=== PATIENT | female | born 1985 | race Caucasian/White ===

== ENCOUNTER → 2017-03-03 | Day surgery (SDC) | payer OTHER ==
[2017-02-23 13:51] VITALS: BMI 25.0
[~2017-03-03] VITALS: Ht 170.2 cm; Wt 75.0 kg
[~2017-03-03] MED LIST: ACET500C35 PO; DULO60CA44 PO; FAMO20TA11 PO; HYDR25TA4 PO; LIDOCAINE HCL 2% 2 ML VIAL (20MG/ML) ONE; MELO15TA4 PO; METR0.754 TOP; MIDAZOLAM HCL 1 MG/ML 2ML VIAL ONE; ONDA8TAB6 PO; POTA20TA16 PO; PREG1CAP70 PO; PROM25TA9 PO; PROPOFOL IV EMULSION 10 MG/ML 20 ML VIAL IV ONE; SODIUM CHLORIDE 0.9% 500ML 500 ML IV ONE; SUMA100T16 PO; TIZA4CAP PO
[2017-03-03 12:48] VITALS: Ht 170.2 cm; Wt 75.0 kg
--- NOTE | 2017-03-03 13:04 | Endo History and Physical ---
History & Physical Date of Service: Mar 03, 2017. Chief Complaint: Diarrhea Referring Physician: Dr. Thompson History of Present Illness She is a pleasant 31-year-old female, who has had several months of postprandial diarrhea that can occur up to 10 times a day. She has no blood in her stool. No melena. She has lost weight, but this mainly has occurred . In a way, it has been relatively stable over the last few months. She also complains of some epigastric burning and pain that can also occur postprandially. She had a right upper quadrant ultrasound, which showed some sludge and some stones in her gallbladder. She was seen by General Surgery in [place], who did not think this was a gallbladder etiology and referred her to GI. She is troubled with heartburn for a number of years, at least since 2005, and she has been on Pepcid. This controlled these symptoms, once daily. She has had no recent antibiotics, and no family or personal history of inflammatory bowel disease. PERTINENT PAST MEDICAL HISTORY: Includes fibromyalgia as well as daily nonsteroidal anti-inflammatory usage. She has not tried any antidiarrheals or any other dietary modifications. Past Surgical History Hx Cardiac Surgery: No Hx Internal Defibrillator: No Hx Pacemaker: No Hx Abdominal Surgery: No Hx of Implantable Prosthesis: No Hx Post-Op Nausea and Vomiting: No Hx Cancer Surgery: No Hx Thoracic Surgery: No Hx Orthopedic: No Hx Urinary Tract Surgery: Yes (NEPHROSTOMY TUBE ) Family History None Social History Smoking Status: Former Smoker Hx Substance Use: No Hx Alcohol Use: Yes (OCCASIONALLY) Allergies Coded Allergies: NO KNOWN DRUG ALLERGIES (Verified Allergy, Unknown, ., 02/23/17) Current Medications Reported Home Medications Medications Dose Route/Sig Max Daily Dose Days Date Category Pepcid (Famotidine) 20 Mg Tab 20 Mg PO QAM 02/23/17 Reported Hctz (Hydrochlorothiazide) 25 Mg Tab 25 Mg PO QAM 02/23/17 Reported Zanaflex (Tizanidine HCl) 4 Mg Cap 4 Mg PO TID 02/23/17 Reported Imitrex (Sumatriptan Succinate) 100 Mg Tab 100 Mg PO PRN 02/23/17 Reported Phenergan (Promethazine HCl) 25 Mg Tab 25 Mg PO Q4H PRN 02/23/17 Reported Metrocream (Metronidazole (Topical)) 0.75 % Cre 1 Appln TOP BID 02/23/17 Reported Klor-Con (Potassium Chloride) 20 Meq Tabcr 20 Meq PO DAILY AFTERNOON 02/23/17 Reported Klor-Con (Potassium Chloride) 20 Meq Tabcr 40 Meq PO BID 02/23/17 Reported Diamox (Acetazolamide) 500 Mg Cap 2 Cap PO TID 02/23/17 Reported Cymbalta (Duloxetine Hcl) 60 Mg Cap 60 Mg PO HS 02/23/17 Reported Zofran (Ondansetron HCl) 8 Mg Tab 8 Mg PO Q8H PRN 02/23/17 Reported Mobic (Meloxicam) 15 Mg Tab 15 Mg PO BID PRN 02/23/17 Reported Lyrica (Pregabalin) 150 Mg Cap 150 Mg PO BID 02/23/17 Reported Vital Signs Weight (Kilograms): 75.00 Height (Feet): 5 Height (Inches): 7 Date Time Temp Pulse Resp B/P Pulse Ox O2 Delivery O2 Flow Rate FiO2 03/03/17 12:56 36.4 90 20 120/86 99 Room Air Physical Exam General Appearance: WD/WN, no apparent distress Respiratory/Chest: Respiratory effort: no dyspnea Auscultation: breath sounds normal, CTA except as noted, no wheezing Cardiovascular: Apical Impulse: not displaced Heart Auscultation: RRR Abdomen: Bowel Sounds: normal Inspection & Palpation: soft, non-distended Assessment and Plan 31 yo with frequent diarrhea -Proceed with EGD and colonoscopy
--- NOTE | 2017-03-03 13:53 | GI REPORT ---
Procedure Date: 03/03/2017 1:14 PM Procedure: Upper GI endoscopy Indications: Epigastric abdominal pain Medicines: General Anesthesia Complications: No immediate complications. Estimated blood loss: None. Estimated Blood Loss: Estimated blood loss: none. Procedure: Pre-Anesthesia Assessment: - Pre-Anesthesia Assessment: - Prior to the procedure, a History and Physical was performed, and patient medications, allergies and sensitivities were reviewed. The patient's tolerance of previous anesthesia was reviewed. Please see [employer] for complete details. - The risks and benefits of the procedure and the sedation options and risks were discussed with the patient. All questions were answered and informed consent was obtained. - Patient identification and proposed procedure were verified prior to the procedure by the physician and the nurse. The procedure was verified in the pre-procedure area in the procedure room. After obtaining informed consent, the endoscope was passed carefully and meticuously under direct vision and only advanced when the lumen was clearly identified, C02 insuflation was utilized throughout the entirity of the procedure. Throughout the procedure, the patient's blood pressure, pulse, and oxygen saturations were monitored continuously. After obtaining informed consent, the endoscope was passed under direct vision. Throughout the procedure, the patient's blood pressure, pulse, and oxygen saturations were monitored continuously. The scope was introduced through the mouth, and advanced to the second part of duodenum. The upper GI endoscopy was accomplished without difficulty. The patient tolerated the procedure well. Findings: The examined esophagus was normal. The entire examined stomach was normal. The examined duodenum was normal. Biopsies for histology were taken with a cold forceps for evaluation of celiac disease. Impression: - Normal esophagus. - Normal stomach. - Normal examined duodenum. Biopsied. Recommendation: - Await pathology results. - Discharge patient to home (with escort). - Return to referring physician as previously scheduled. Rafael Espitia MD 03/03/2017 1:52:33 PM This report has been signed electronically. Note Initiated On: 03/03/2017 1:14 PM I attest to the content of the Intraoperative Record and orders documented therein, exceptions below
--- NOTE | 2017-03-03 13:56 | GI REPORT ---
Procedure Date: 03/03/2017 1:14 PM Procedure: Colonoscopy Indications: Chronic diarrhea Medicines: General Anesthesia Complications: No immediate complications. Estimated blood loss: None. Estimated Blood Loss: Estimated blood loss: none. Procedure: Pre-Anesthesia Assessment: - Pre-Anesthesia Assessment: - Prior to the procedure, a History and Physical was performed, and patient medications, allergies and sensitivities were reviewed. The patient's tolerance of previous anesthesia was reviewed. Please see [employer] for complete details. - The risks and benefits of the procedure and the sedation options and risks were discussed with the patient. All questions were answered and informed consent was obtained. - Patient identification and proposed procedure were verified prior to the procedure by the physician and the nurse. The procedure was verified in the pre-procedure area in the procedure room. After obtaining informed consent, the endoscope was passed carefully and meticuously under direct vision and only advanced when the lumen was clearly identified, C02 insuflation was utilized throughout the entirity of the procedure. Throughout the procedure, the patient's blood pressure, pulse, and oxygen saturations were monitored continuously. After I obtained informed consent, the scope was passed under direct vision. Throughout the procedure, the patient's blood pressure, pulse, and oxygen saturations were monitored continuously. The scope was introduced through the anus and advanced to the terminal ileum, with identification of the appendiceal orifice and IC valve. The colonoscopy was performed without difficulty. The patient tolerated the procedure well. The quality of the bowel preparation was good. Findings: The colon (entire examined portion) appeared normal other than small internal hemorrhoids. Biopsies for histology were taken with a cold forceps from the entire colon for evaluation of microscopic colitis. The terminal ileum appeared normal. Internal hemorrhoids were found during retroflexion. Impression: - The entire examined colon is normal. - The examined portion of the ileum was normal. - Internal hemorrhoids. - Biopsies were taken with a cold forceps from the entire colon for evaluation of microscopic colitis. Recommendation: - Await pathology results. - Use fiber, for example Citrucel, Fibercon, Konsyl or Metamucil. - Return to my office as needed. Rafael Espitia MD 03/03/2017 1:55:35 PM This report has been signed electronically. Note Initiated On: 03/03/2017 1:14 PM I attest to the content of the Intraoperative Record and orders documented therein, exceptions below
--- NOTE | 2017-03-03 14:02 | Discharge Instructions ---
Endoscopy Patient Instructions Date / Procedure(s) Performed Mar 03, 2017. Colonoscopy, EGD Allergy Information Coded Allergies: NO KNOWN DRUG ALLERGIES (Verified Allergy, Unknown, ., 02/23/17) Discharge Date / Findings Mar 03, 2017. Normal Exams Biopsies were taken and you will be contacted with results Resume fiber Provider Instructions Activity Restrictions - No exercising or heavy lifting for 24 hours. - Do not drink alcohol the day of the procedure. - Do not drive a car or operate machinery until the day after the procedure. - Do not make any important decisions or sign important papers in 24 hours after the procedure. Following Day: - Return to full activity which may include returning to work/school. Diet Start your diet with liquids and light foods (jello, soup, juice, toast). Then eat your usual diet if not nauseated. Treatment For Common After Affects For mild abdominal pain, bloating, or excessive gas: - Rest - Eat lightly - Lie on right side Follow-Up Information Follow-up with Dr. Thompson as scheduled Anesthesia Information What You Should Know You have had a procedure that required some medicine to reduce anxiety and discomfort. This treatment is called moderate sedation. After receiving the treatment, you may be sleepy, but you will be able to breathe on your own. The effects of the treatment may last for several hours. Follow these instructions along with Activity/Diet recommendations noted above: * Do NOT do anything where dizziness or clumsiness would be dangerous. * Rest quietly at home today, then you can be up and about tomorrow. * Have a responsible person stay with you the rest of today. * You may have had an I.V. today. If so, you may take the dressing off later today. Recommendations Call your doctor if: * Trouble breathing * Continuous vomiting for more than 24 hours * Temperature above 101 degrees * Severe abdominal pain or bloating * Pain not relieved by pain medicine ordered * There is increased drainage or redness from any incision * A large amount of rectal bleeding greater than 2-3 tablespoons. (If you had a polyp/s removed or have hemorrhoids, a small amount of blood - from the rectum is to be expected.) * You have any unanswered questions or concerns. IN THE EVENT OF A SERIOUS EMERGENCY, GO TO THE NEAREST EMERGENCY ROOM Your discharge instructions were prepared by provider Rafael Espitia. Patient Instructions Signature Page Speedy Bungo Patient (or Guardian) Signature/Date: I have read and understand the instructions given to me by my caregivers. Caregiver/RN/Doctor Signature/Date: The above-named patient and/or guardian has received patient instructions on this date. + Original Patient Signature Page (only) stays with chart. Please make copy for patient.
[2017-03-03 14:33] VITALS: BP 115/83; PULSE 76; O2SAT 100
--- NOTE | 2017-03-03 14:57 | Anesthesiology Progress Note ---
Anesthesia Post Op Note Date & Time Mar 03, 2017 at 14:56 Vital Signs Pain Intensity: 0 Vital Signs Past 12 Hours Date Time Temp Pulse Resp B/P Pulse Ox O2 Delivery O2 Flow Rate FiO2 03/03/17 14:33 76 18 115/83 100 Room Air 03/03/17 14:25 80 16 109/87 100 Room Air 03/03/17 14:09 78 16 117/79 100 Room Air 03/03/17 13:54 80 12 111/67 97 Room Air 03/03/17 12:56 36.4 90 20 120/86 99 Room Air Notes Mental Status: alert / awake / arousable, participated in evaluation Pt Amnestic to Procedure: Yes Nausea / Vomiting: adequately controlled Pain: adequately controlled Airway Patency, RR, SpO2: stable & adequate BP & HR: stable & adequate Hydration State: stable & adequate Anesthetic Complications: no major complications apparent
== END | disposition home or self-care (01) ==
LOC: C.GI 12:03 → EDBD 13:00 → EDSEX 13:00
PROVIDERS: ATTEND Internal Medicine
DX: K52.9 Noninfective gastroenteritis and colitis, unspecified (principal); R10.13 Epigastric pain; K64.8 Other hemorrhoids